=== PATIENT | male | born 1965 | race American Indian/Alaskan Native ===

== ENCOUNTER 2018-05-19 15:42 | Emergency (ER) | payer SELFPAY ==
[2018-05-19 15:50] VITALS: BP 162/105
[2018-05-19] MEDS ORDERED: ASPIRIN PO ONE (15:50)
[2018-05-19 16:23] LABS: Basophils % (Auto) 0.4 % (0.0-1.8); Eosinophils # (Auto) 0.1 K/mm3 (0.0-0.4); Hemoglobin 15.1 gm/dl (11.8-15.2); Lymphocytes # (Auto) 1.9 K/mm3 (1.2-5.4); Lymphocytes % (Auto) 20.7 % (13.4-35.0); Mean Corpuscular HGB Conc 33 % (32-34); Mean Corpuscular Hemoglobin 29 pg (28-32); Mean Corpuscular Volume 89 fl (84-94); Monocytes # (Auto) 0.5 K/mm3 (0.0-0.8); Monocytes % (Auto) 5.7 % (0.0-7.3); Platelet Count 268 K/mm3 (140-440); Red Blood Count 5.16 M/mm3 (3.65-5.03); Red Cell Distribution Width 15.6 % (13.2-15.2)
[2018-05-19 16:41] LABS: BUN/Creatinine Ratio 10; Blood Urea Nitrogen 10 mg/dL (9-20); Calcium 9.4 mg/dL (8.4-10.2); Hemolysis Index 89
--- NOTE | 2018-05-19 20:20 | Emergency Department Report ---
HPI - General Chief Complaint: Syncope Time Seen by Provider: 05/19/18 19:58 - HPI HPI: 52-year-old male presents to the emergency department after having a syncopal episode earlier today while waiting for the bus. He says he had a previous episode of passing out in December. At that time he was seen by EMS, received some IV fluid, felt better and never came to the emergency department. Today, he was helped up off of the ground and into the bus, and came in to be seen. He has a generalized headache. He denies any vision change , slurred speech, chest pain or any neurological deficits. He did not take anything for her symptoms prior to Presentation. He denies any past medical history. He does admit to using cocaine two days ago. ED Past Medical Hx - Past Medical History Previous Medical History?: No - Surgical History Past Surgical History?: No - Social History Smoking Status: Current Every Day Smoker Substance Use Type: Alcohol, Cocaine ED Review of Systems ROS: Stated complaint: SYNCOPE EPISODES Other details as noted in HPI Comment: All other systems reviewed and negative Constitutional: denies: chills, fever Eyes: denies: eye pain, eye discharge, vision change ENT: denies: ear pain, throat pain Respiratory: denies: cough, shortness of breath, wheezing Cardiovascular: syncope. denies: chest pain Gastrointestinal: denies: abdominal pain, nausea, diarrhea Genitourinary: denies: urgency, dysuria Musculoskeletal: denies: back pain, joint swelling, arthralgia Skin: denies: rash, lesions Neurological: headache. denies: numbness Physical Exam - Physical Exam Vital Signs: Vital Signs 05/19/18 15:47 Temperature 97.5 F L Pulse Rate 70 Respiratory 16 Rate Blood Pressure 162/105 O2 Sat by Pulse 99 Oximetry Physical Exam: GENERAL: The patient is well-developed well-nourished. HENT: Normocephalic. Atraumatic. Patient has moist mucous membranes. EYES: Extraocular motions are intact. Pupils equal reactive to light bilaterally. No nystagmus. NECK: Supple. Trachea is midline. CHEST/LUNGS: Clear to auscultation. There is no respiratory distress noted. HEART/CARDIOVASCULAR: Regular. There is no tachycardia. There is no murmur. ABDOMEN: Abdomen is soft, nontender. Patient has normal bowel sounds. There is no abdominal distention. SKIN: Skin is warm and dry. NEURO: The patient is awake, alert, and oriented. The patient is cooperative. The patient has no focal neurologic deficits. The patient has normal speech and gait. Cranial nerves II-12 grossly intact. No dysmetria. No pronator drift. MUSCULOSKELETAL: There is no tenderness or deformity. There is no limitation range of motion. There is no evidence of acute injury. Muscle strength 5 out of 5 upper and lower extremities bilaterally. ED Course Vital Signs 05/19/18 15:47 Temperature 97.5 F L Pulse Rate 70 Respiratory 16 Rate Blood Pressure 162/105 O2 Sat by Pulse 99 Oximetry ED Medical Decision Making - Lab Data Result diagrams: 05/19/18 16:03 05/19/18 16:03 - EKG Data -: EKG Interpreted by Me EKG shows normal: sinus rhythm, axis, intervals, QRS complexes (early repolarization), ST-T waves Rate: normal - EKG Data When compared to previous EKG there are: previous EKG unavailable Interpretation: normal EKG (with early repolarization) - Radiology Data Radiology results: report reviewed, image reviewed interpreted by me: Chest x-ray does not show any acute process. There are no pleural effusions, obvious pneumonia and there is no pneumothorax. CT of the head does not show any acute intracranial process including no ischemia, shift, mass, bleeding or skull fracture. - Medical Decision Making Patient presents with the complaint of having a syncopal episode earlier today and another one a few months ago back in December. Since he has been in the emergency department he has been awake and alert without any focal, motor or sensory deficits and his cranial nerves are intact. EKG did not show any signs of ST elevation MS, dysrhythmia. CT of the head does not show any bleed, shift , mass or any acute process. Labs have been unremarkable. Vital signs stable throughout his ED course. He does have some elevated blood pressure but has no complaints of any chest pain or shortness of breath. Patient is asking for discharge home. He has been given multiple referrals for primary care. He has been instructed to return to the emergency department immediately with any further episodes of passing out, any signs of any neurological deficits, or with any acute distress. - Differential Diagnosis vasovagal, orthostatic hypotension, dysrhythmia, TIA Critical Care Time: No Critical care attestation.: If time is entered above; I have spent that time in minutes in the direct care of this critically ill patient, excluding procedure time. ED Disposition Clinical Impression: Syncope Qualifiers: Syncope type: unspecified Qualified Code(s): R55 - Syncope and collapse Hypertension Qualifiers: Hypertension type: essential hypertension Qualified Code(s): I10 - Essential ( primary) hypertension Disposition: TO HOME OR SELFCARE Is pt being admited?: No Condition: Stable Instructions: Syncope (ED), Hypertension (ED) Additional Instructions: Please follow up with a primary care physician in the next few days. Return to the emergency Department with any worsening of your symptoms or any acute distress. Please try and stay away from foods that are high in salt and caffeinated products to help with your elevated blood pressure. Keep a blood pressure log. Referrals: PRIMARY CARE, [Primary Care Provider] - 3-5 Days [facility] [Outside] - 3-5 Days [facility] [Outside] - 3-5 Days [facility] [Outside] - 3-5 Days Forms: Work/School Release Form(ED) Time of Disposition: 22:31
--- NOTE | 2018-05-19 22:27 | Cat Scan Report ---
FINAL REPORT PROCEDURE: CT HEAD/BRAIN WO CON TECHNIQUE: Computerized tomography of the head was performed without contrast material. HISTORY: Syncope COMPARISON: No prior studies are available for comparison. FINDINGS: There is no CT evidence of intracranial mass, hemorrhage, acute territorial infarction, or hydrocephalus. The intracranial arteries are symmetric in density. Calvarium is intact. There is a small amount of right ethmoid sinus fluid. Mastoids are aerated IMPRESSION: No CT evidence of acute intracranial abnormality
--- NOTE | 2018-05-19 23:42 | XRay Report ---
FINAL REPORT PROCEDURE: XR CHEST ROUTINE 2V TECHNIQUE: PA and lateral chest radiographs were obtained. CPT 25222 HISTORY: Syncope COMPARISON: No prior studies are available for comparison. FINDINGS: Heart: Normal. Mediastinum/Vessels: Normal. Lungs/Pleural space: Normal. Bony thorax: No acute osseous abnormality. Other: IMPRESSION: Normal examination.
== END 2018-05-19 22:40 | disposition home or self-care (01) ==
LOC: ED 15:42
DX: I10 Essential (primary) hypertension (principal); F17.200 Nicotine dependence, unspecified, uncomplicated; R55 Syncope and collapse
CPT/HCPCS: 36415; 70450; 71046; 80048; 84443; 84484; 85025; 93005; 93010

== ENCOUNTER 2021-09-25 00:35 | Emergency (ER) | payer SELFPAY ==
[2021-09-25 01:31] VITALS: BP 193/109
--- NOTE | 2021-09-25 03:21 | Emergency Department Report ---
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 Patient states he slipped both times. There has been no focal weakness no nausea vomiting no fever chills there has been no loss or decrease in bowel or bladder function. Patient does endorse right posterior shoulder swelling and ecchymosis. Right shoulder range of motion remains intact and unrestricted at this time. Denies dizziness lightheadedness or arm numbness at this time. MD Complaint: Injury to:: right, shoulder Other Extremity Injury: Fingers: Left, Right, Hand: Left, Right, Wrist: Left, Right, Elbow: Left, Right Other Injuries: neck Handedness: right Place: work Severity scale (0 -10): 5 Improves With: medication Worsens With: none Context: fall - Related Data Previous Rx's Medication Instructions Recorded Last Taken Type Ibuprofen [Motrin] 800 mg PO Q8HR PRN #15 tablet 10/09/18 Unknown Rx Cyclobenzaprine [Flexeril] 10 mg PO BID PRN 5 Days #10 tablet 09/25/21 Unknown Rx Methyl Salicylate/Menth/Camph 1 applicatio TP BID PRN #1 tube 09/25/21 Unknown Rx [Salonpas Deep Relieving Gel] Naproxen 500 mg PO BID PRN #30 tablet 09/25/21 Unknown Rx Allergies Allergy/AdvReac Type Severity Reaction Status Date / Time No Known Allergies Allergy Unverified 05/19/18 15:47 ED Review of Systems ROS: Stated complaint: NECK PAIN Other details as noted in HPI Constitutional: denies: chills, fever Eyes: denies: eye pain, eye discharge, vision change ENT: denies: ear pain, throat pain Respiratory: denies: cough, shortness of breath, wheezing Cardiovascular: denies: chest pain, palpitations Endocrine: no symptoms reported Gastrointestinal: denies: abdominal pain, nausea, vomiting, diarrhea Genitourinary: denies: urgency, dysuria Musculoskeletal: arthralgia, other (should). denies: back pain, joint swelling Skin: denies: rash, lesions Neurological: denies: headache, weakness, paresthesias Psychiatric: denies: anxiety, depression Hematological/Lymphatic: denies: easy bleeding, easy bruising ED Past Medical Hx - Past Medical History Previous Medical History?: No Additional medical history: syncopal episode - Surgical History Past Surgical History?: Yes Hx Appendectomy: Yes - Social History Smoking Status: Current Every Day Smoker Substance Use Type: Alcohol, Prescribed - Medications Home Medications: Home Medications Medication Instructions Recorded Confirmed Last Taken Type Ibuprofen [Motrin] 800 mg PO Q8HR PRN #15 tablet 10/09/18 Unknown Rx Cyclobenzaprine [Flexeril] 10 mg PO BID PRN 5 Days #10 tablet 09/25/21 Unknown Rx Methyl Salicylate/Menth/Camph 1 applicatio TP BID PRN #1 tube 09/25/21 Unknown Rx [Salonpas Deep Relieving Gel] Naproxen 500 mg PO BID PRN #30 tablet 09/25/21 Unknown Rx ED Physical Exam - General Limitations: No Limitations General appearance: alert, in no apparent distress - Head Head exam: Present: normocephalic, normal inspection - Eye Eye exam: Present: normal appearance, PERRL, EOMI Pupils: Present: normal accommodation, unequal - ENT ENT exam: Present: mucous membranes moist - Neck Neck exam: Present: normal inspection, tenderness, full ROM, lymphadenopathy. Absent: meningismus, thyromegaly - Expanded Neck Exam Expanded Neck exam: Present: tenderness (No posterior vertebral point tenderness range of motion intact and unrestricted). Absent: midline deformity, anterior neck swelling, carotid bruit, tracheal deviation - Respiratory Respiratory exam: Present: normal lung sounds bilaterally. Absent: respiratory distress, wheezes, rhonchi, stridor, chest wall tenderness - Cardiovascular Cardiovascular Exam: Present: regular rate, normal rhythm, normal heart sounds - GI/Abdominal GI/Abdominal exam: Present: soft, rigid, normal bowel sounds. Absent: di stended, tenderness, guarding, rebound, organomegaly, mass, bruit, pulsatile mass, hernia - Rectal Rectal exam: Present: deferred - exam: Present: normal inspection - Extremities Exam Extremities exam: Present: normal inspection, full ROM, normal capillary refill. Absent: tenderness, pedal edema - Expanded Upper Extremity Exam Right Shoulder Exam: Present: full ROM, tenderness (muscular tenderness to posterior upp shoulder , case packer equal , distal pulses intact, supervisor cellars<3 sec bilat ). Absent: swelling, abrasion, crepidus, dislocation, erythema, tenderness over AC joint Upper Arm exam: Present: full ROM. Absent: tenderness Elbow exam: Present: full ROM. Absent: tenderness Forearm Wrist exam: Present: full ROM. Absent: tenderness Hand Wrist exam: Present: full ROM. Absent: tenderness Neuro motor exam: Present: wrist extension intact, thumb opposition intact, thumb IP flexion intact, thumb adduction intact, fingers 2-5 abduction intact Neurosensory exam: Present: radial nerve intact - Back Exam Back exam: Present: normal inspection, full ROM, tenderness, CVA tenderness (L), rash noted. Absent: CVA tenderness (R), vertebral tenderness - Neurological Exam Neurological exam: Present: alert, oriented X3, CN II-XII intact, normal gait. Absent: motor sensory deficit - Psychiatric Psychiatric exam: Present: normal affect, normal mood - Skin Skin exam: Present: warm, dry, intact, normal color, cyanosis, petechiae, pallor. Absent: rash ED Course Vital Signs 09/25/21 01:28 Temperature 98.6 F Pulse Rate 85 Respiratory 18 Rate Blood Pressure 193/109 [Right] O2 Sat by Pulse 98 Oximetry ED Medical Decision Making - Radiology Data Radiology results: report reviewed, image reviewed T cervical spine wo con INDICATION / CLINICAL INFORMATION: Fall, with questionable C-Spine Xray. TECHNIQUE: Axial coronal and sagittal images All CT scans at this location are performed using CT dose reduction for ALARA by means of automated exposure control. COMPARISON: None available. FINDINGS: Discogenic degenerative changes seen throughout spine with anterior posterior disc osteophytes throughout. Odontoid appears intact. No prevertebral soft tissue swelling. Skull base appears normal no subluxation is seen. IMPRESSION: 1. No acute fractures identified. Degenerative changes seen throughout spine. Signer Name: Villa Hdez MD Signed: 09/25/2021 4:55 AM Workstation Name: [id number] Cervical spine 3 views INDICATION: Fall FINDINGS: There is suggested lucency of the base of the odontoid. Discogenic degenerative changes seen throughout the cervical spine. Anterior disc osteophytes at several levels. IMPRESSION: Lucency in the base of odontoid could represent odontoid fracture. CT is re commended. Right shoulder 2 views INDICATION: Shoulder pain FINDINGS: No acute fracture dislocation. No dislocation. Signer Name: Villa Hdez MD Signed: 09/25/2021 4:01 AM Workstation Name: [id number] Cervical spine 3 views INDICATION: Fall FINDINGS: There is suggested lucency of the base of the odontoid. Discogenic degenerative changes seen throughout the cervical spine. Anterior disc osteophytes at several levels. IMPRESSION: Lucency in the base of odontoid could represent odontoid fracture. CT is recommended. Right shoulder 2 views INDICATION: Shoulder pain FINDINGS: No acute fracture dislocation. No dislocation. Signer Name: Villa Hdez MD Signed: 09/25/2021 4:01 AM Workstation Name: [id number] - Medical Decision Making Patient states pain is improved after medications given in ED. CT scan C-spine, demonstrates no fracture or degenerative changes as discussed with patient patient verbalizes and confirms that this is a chronic issue. X-rays of shoulder and C-spine are negative for fracture. This is likely muscle strain. Plan analgesic balm, NSAIDs, moist heat therapy, neck and shoulder exercises. Follow- up with primary care doctor in 2 to 3 days. Return to emergency department should symptoms worsen. Patient verbalizes agreement and understanding with d ischarge plan. Patient will be DC'd home in stable condition at this time. Critical care attestation.: If time is entered above; I have spent that time in minutes in the direct care of this critically ill patient, excluding procedure time. ED Disposition Clinical Impression: Cervical muscle strain Qualifiers: Encounter type: initial encounter Qualified Code(s): S16.1XXA - Strain of muscle, fascia and tendon at neck level, initial encounter Right shoulder strain Qualifiers: Encounter type: initial encounter Qualified Code(s): S46.911A - Strain of unspecified muscle, fascia and tendon at shoulder and upper arm level, right arm, initial encounter Disposition: HOME / SELF CARE / HOMELESS Is pt being admited?: No Does the pt Need Aspirin: No Condition: Stable Instructions: Cervical Strain and Sprain Rehab-SportsMed, Muscle Strain, [id number] Additional Instructions: Take medications as prescribed. Use moist heat therapy as directed. Do neck and shoulder exercises as directed. Follow-up with your primary care doctor in 2 to 3 days. Return to emergency department should symptoms worsen. Prescriptions: Cyclobenzaprine [Flexeril] 10 mg PO BID PRN 5 Days #10 tablet PRN Reason: Muscle Spasm Naproxen 500 mg PO BID PRN #30 tablet PRN Reason: Pain , Severe (7-10) Methyl Salicylate/Menth/Camph [Salonpas Deep Relieving Gel] 1 applicatio TP BID PRN #1 tube PRN Reason: Pain , Severe (7-10) Referrals: DUARTE HUMPHREY MD [Referring] - 3-5 Days Forms: Work/School Release Form(ED) Time of Disposition: 05:41
--- NOTE | 2021-09-25 04:05 | XRay Report ---
Cervical spine 3 views INDICATION: Fall FINDINGS: There is suggested lucency of the base of the odontoid. Discogenic degenerative changes see n throughout the cervical spine. Anterior disc osteophytes at several levels. IMPRESSION: Lucency in the base of odontoid could represent odontoid fracture. CT is recommended. Right shoulder 2 views INDICATION: Shoulder pain FINDINGS: No acute fracture dislocation. No dislocation. Signer Name: Villa Hdez MD Signed: 09/25/2021 4:01 AM Workstation Name: [id number]
[2021-09-25] MEDS ORDERED: HYDROcodone/ACETAMINOPHEN 5-325 MG TAB PO ONE (04:39)
--- NOTE | 2021-09-25 04:59 | Cat Scan Report ---
CT cervical spine wo con INDICATION / CLINICAL INFORMATION: Fall, with questionable C-Spine Xray. TECHNIQUE: Axial coronal and sagittal images All CT scans at this location are performed using CT dose reduction for ALARA by means of automated exposure control. COMPARISON: None available. FINDINGS: Discogenic degenerative changes seen throughout spine with anterior posterior disc osteophytes throug hout. Odontoid appears intact. No prevertebral soft tissue swelling. Skull base appears normal no sub luxation is seen. IMPRESSION: 1. No acute fractures identified. Degenerative changes seen throughout spine. Signer Name: Villa Hdez MD Signed: 09/25/2021 4:55 AM Workstation Name: [id number]
== END 2021-09-25 06:28 | disposition home or self-care (01) ==
LOC: ED 00:35
DX: S46.911A Strain of unspecified muscle, fascia and tendon at shoulder and upper arm level, right arm, initial encounter (principal); Z90.89 Acquired absence of other organs; F17.200 Nicotine dependence, unspecified, uncomplicated; W01.0XXA Fall on same level from slipping, tripping and stumbling without subsequent striking against object, initial encounter; Y93.89 Activity, other specified; Y92.89 Other specified places as the place of occurrence of the external cause; Y99.8 Other external cause status
CPT/HCPCS: 72040; 72125; 99284